=== PATIENT | female | born 1965 | race Caucasian/White ===

== ENCOUNTER 2018-10-10 13:15 | Observation (INO) | payer BC ==
[~2018-10-10] VITALS: Ht 170.2 cm; Wt 132.7 kg
[~2018-10-10 13:15] MED LIST: CEPH500 PO; Flonase 0.05% N16 GM; IBUP800 PO; OMEPRAZOLE MAGN20 MG PO; ZOLP5 PO
[2018-10-10 14:11] LABS: BASOPHILS PERCENT AUTO 1 % (0-2); EOSINOPHILS ABSOLUTE AUTO 0.25 K/mm3 (0.00-0.68); EOSINOPHILS PERCENT AUTO 2 % (0-6); Hematocrit 42.3 % (33.0-51.0); Hemoglobin 13.8 g/dL (11.5-16.0); IMMATURE GRAN ABSOLUTE AUTO 0.38 K/mm3 (0.00-0.10); IMMATURE GRAN PERCENT AUTO 4 % (0-1); LYMPHOCYTES ABSOLUTE AUTO 1.85 K/mm3 (0.84-5.20); LYMPHOCYTES PERCENT AUTO 17 % (21-46); MONOCYTES ABSOLUTE AUTO 1.56 K/mm3 (0.16-1.47); MONOCYTES PERCENT AUTO 15 % (4-13); Mean Corpuscular HGB 28.7 pg (26.0-34.0); Mean Corpuscular HGB Conc 32.6 g/dL (31.5-36.5); Mean Corpuscular Volume 88 fL (80-100); Mean Platelet Volume 9.1 fL (9.1-12.4); NEUTROPHILS ABSOLUTE AUTO 6.61 K/mm3 (1.96-9.15); NEUTROPHILS PERCENT AUTO 62 % (41-73); Platelet Count 200 K/mm3 (150-400); RDW Coefficient Variation 13.2 % (11.7-14.2); RDW Standard Deviation 42.6 fL (35.1-46.3); Red Blood Cell Count 4.81 M/mm3 (3.80-5.20); White Blood Cell Count 10.75 K/mm3 (4.00-11.30)
[2018-10-10 14:36] LABS: Alanine Aminotransfer (ALT/SGP 54 U/L (12-78); Albumin/Globulin Ratio 0.8 (0.8-1.8); Alk Phos 85 U/L (50-136); Anion Gap 9 mmol/L (6-16); Aspartate Aminotrans (AST/SGOT 34 U/L (12-37); Bilirubin, Total 0.4 mg/dL (0.1-1.0); Blood Urea Nitrogen 12 mg/dL (8-24); Bun/Creatinine Ratio 15.5 (12.0-20.0); CO2, Blood 24 mmol/L (21-32); Calcium, Blood 8.9 mg/dL (8.5-10.1); Chloride, Blood 109 mmol/L (98-108); Creatinine, Blood 0.77 mg/dL (0.40-1.00); Globulin, Blood 3.8 g/dL (2.2-4.0); Glomerular Filtration Rate >60 (60-); Glucose, Blood 91 mg/dL (70-99); Potassium, Blood 3.6 mmol/L (3.5-5.5); Sodium, Blood 142 mmol/L (136-145); Total Protein, Blood 6.8 g/dL (6.4-8.2)
[2018-10-10] MEDS ORDERED: ACET500 PO (18:54)
[2018-10-10] MEDS ORDERED: IBUP400 PO (18:55)
[2018-10-11 05:14] LABS: BASOPHILS ABSOLUTE AUTO 0.06 K/mm3 (0.00-0.23); BASOPHILS PERCENT AUTO 1 % (0-2); EOSINOPHILS ABSOLUTE AUTO 0.31 K/mm3 (0.00-0.68); EOSINOPHILS PERCENT AUTO 4 % (0-6); Hematocrit 36.5 % (33.0-51.0); Hemoglobin 11.7 g/dL (11.5-16.0); IMMATURE GRAN ABSOLUTE AUTO 0.37 K/mm3 (0.00-0.10); IMMATURE GRAN PERCENT AUTO 5 % (0-1); LYMPHOCYTES ABSOLUTE AUTO 2.05 K/mm3 (0.84-5.20); LYMPHOCYTES PERCENT AUTO 25 % (21-46); MONOCYTES ABSOLUTE AUTO 1.14 K/mm3 (0.16-1.47); MONOCYTES PERCENT AUTO 14 % (4-13); Mean Corpuscular HGB 28.5 pg (26.0-34.0); Mean Corpuscular HGB Conc 32.1 g/dL (31.5-36.5); Mean Corpuscular Volume 89 fL (80-100); Mean Platelet Volume 9.1 fL (9.1-12.4); NEUTROPHILS ABSOLUTE AUTO 4.21 K/mm3 (1.96-9.15); NEUTROPHILS PERCENT AUTO 52 % (41-73); Platelet Count 179 K/mm3 (150-400); RDW Coefficient Variation 13.3 % (11.7-14.2); RDW Standard Deviation 43.5 fL (35.1-46.3); White Blood Cell Count 8.14 K/mm3 (4.00-11.30)
--- NOTE | 2018-10-11 06:39 | NUR ---
SHIFT SUMMARY PT ARRIVE TO ROOM APPROX 1999. INDEPENDENT IN ROOM. NO C/O PAIN. ABD DRESSING TO WOUND SITE. CALL LIGHT IN REACH.
--- NOTE | 2018-10-11 17:43 | NUR ---
SHIFT SUMMARY NO CHANGES IN ASSESSMENT AT THIS TIME. PT BANDAGE CHANGED. DRAINAGE YELLOW/RED IN COLOR. PT MEDICATED FOR PAIN ONCE THIS SHIFT. PT TOLERATED AMBULATING [facility] WITH HER . VSS. WILL CONTINUE TO MONITOR UNTIL TURNOVER IS COMPLETE.
--- NOTE | 2018-10-12 07:47 | NUR ---
Rn summary: Patient is alert and oriented. Drsg change to mons pubis, drainage is brownish,serrous, moderate amount. Pt has declined any pain meds. She has been up in her chair and up independantly in room. Pt states she slept well on and off during the night. She is very hopeful to be discharged today. Call light in reach. Report given to day shift RN.
[2018-10-12] MEDS ORDERED: SACC250C PO (11:57)
[2018-10-12] MEDS ORDERED: NICO21TP TOP (11:57)
[2018-10-12] MEDS ORDERED: CLIN150 PO (11:58)
--- NOTE | 2018-10-12 14:21 | NUR ---
DISCHARGE SUMMARY PT DISCHARGED HOME WITH SPOUSE PRESENT. PT LEFT ROOM WITH SPOUSE AND SHIFT SUPERVISOR FILM PROCESSING ESCORT PRIOR TO THIS NOTE. PT EDUCATED ON WOULD CARE AND INSTRUCTED TO TAKE MEDICATIONS THROUGH COMPLETION. DISCHARGE INSTRUCTIONS COMPLETED, ALL QUESTIONS ANSWERED. PT AGREED TO FOLLOW UP WITH PCP AND TO MEDICAL UNDERWRITER MEDICATIONS FROM PHARMACY. IV DC'D AND BELONGINGS RETURNED.
== END 2018-10-12 13:18 | disposition home or self-care (01) ==
LOC: ER 13:15 → MEDS 13:52 → ENPENDDIS 10-12 09:29 → MEDS 10-12 13:18
PROVIDERS: Nurse Practitioner Acute Care; Physician Assistant; ADMIT Internal Medicine
DX: M79.3 Panniculitis, unspecified (principal); K21.9 Gastro-esophageal reflux disease without esophagitis; E66.01 Morbid (severe) obesity due to excess calories; F17.210 Nicotine dependence, cigarettes, uncomplicated; Z79.899 Other long term (current) drug therapy; Z88.6 Allergy status to analgesic agent; Z68.41 Body mass index [BMI] 40.0-44.9, adult
CPT/HCPCS: 36415; 72193; 80053; 83605; 85025; 87205; 96361; 96365-59; 96366; 96367; 96372; 96375-59; 96376; 99284-25; G0378; J0690; J1650; J7030; Q9967

== ENCOUNTER 2018-12-18 12:00 | Day surgery (SDC) | payer BC ==
[~2018-12-18 12:00] MED LIST changes: +ACET500 PO; +CLIN150 PO; +IBUP400 PO; +NICO21TP TOP; +SACC250C PO
--- NOTE | 2018-12-18 12:46 | NUR ---
DR AMEZCUA IN AGREEMENT TO PROCEED WITH NURSE SEDATION/PROPOFOL. PT AWARE AND AGREEABLE WIT PLAN. History, Chart, Medications and Allergies reviewed before start of procedure. Patient states colon prep results clear. Patient States Post-Procedure ride home has been arranged.
--- NOTE | 2018-12-18 13:36 | NUR ---
12/18/18 1336 [place] PATIENT DETERMINED TO BE ASA APPROPRIATE FOR PROPOFOL SEDATION PRIOR TO START OF PROCEDURE BY 3-LEAD EKG REVIEWED WITH PHYSICIAN PRIOR TO START OF PROCEDURE.Patient to ENDO 2History, Chart, Medications and Allergies reviewed before start of procedure.MONITOR INTACT WITH CONTINUOUS PULSE OXIMETRY AND INTERMITTENT BP.O2 VIA N/C INTACT THROUGHOUT SEDATION/PROCEDURE.
== END 2018-12-18 22:54 | disposition home or self-care (01) ==
LOC: ORSCMMR 12:00 → ORD 13:30 → ORSCMMR 13:30
PROVIDERS: Internal Medicine Gastroenterology
PROC: 0DBL8ZX Excision of Transverse Colon, Via Natural or Artificial Opening Endoscopic, Diagnostic (ICD-10-PCS; principal; 2018-12-18 13:30)
PROC: 0DBH8ZX Excision of Cecum, Via Natural or Artificial Opening Endoscopic, Diagnostic (ICD-10-PCS; principal; 2018-12-18 13:30)
DX: Z12.11 Encounter for screening for malignant neoplasm of colon (principal); Z86.010 Personal history of colon polyps; D12.0 Benign neoplasm of cecum; D12.3 Benign neoplasm of transverse colon; K57.30 Diverticulosis of large intestine without perforation or abscess without bleeding; K64.8 Other hemorrhoids; K21.9 Gastro-esophageal reflux disease without esophagitis; G47.33 Obstructive sleep apnea (adult) (pediatric); Z87.891 Personal history of nicotine dependence; E66.01 Morbid (severe) obesity due to excess calories; Z68.41 Body mass index [BMI] 40.0-44.9, adult; Z79.899 Other long term (current) drug therapy
CPT/HCPCS: 88305; J2704; J7120

== ENCOUNTER → 2019-10-08 | Outpatient (CLI) | payer BC ==
[2019-10-10 14:08] LABS: HPV 16 Negative (Negative); HPV 18 Negative (Negative); HPV OTHER HR TYPES Negative (Negative)
== END | disposition home or self-care (01) ==
LOC: LAB SHORT 11:44 → LAB 11:44
PROVIDERS: Obstetrics & Gynecology
DX: Z01.419 Encounter for gynecological examination (general) (routine) without abnormal findings (principal)
CPT/HCPCS: 87624; G0123

== ENCOUNTER 2020-08-17 08:09 | Day surgery (SDC) | payer BC ==
[~2020-08-17] VITALS: Ht 170.2 cm; Wt 136.4 kg
[~2020-08-17 08:09] MED LIST changes: +Percocet 5-3251 EACH PO; +XARELTO20 MG PO
[2020-08-17] MEDS ORDERED: Aspir 8181 MG (08:51)
--- NOTE | 2020-08-17 09:07 | NUR ---
08/17/20 0907 Marbella Soto BLOOD DRAWN FOR PRP AND ANTICOAGULANT IS ADDED, DELIVERED TO THE OR AND SPUN.
--- NOTE | 2020-08-17 11:54 | NUR ---
08/17/20 1154 Radha Mccall 1MG EPI INJECTED INTO 3 3000MLBAGS OF LR FOR IRRIGATION PER PHSYICIN ORDERS
== END 2020-08-17 12:35 | disposition home or self-care (01) ==
LOC: ORSCSDS 08:09
PROVIDERS: Orthopaedic Surgery
PROC: 0LQ24ZZ Repair Left Shoulder Tendon, Percutaneous Endoscopic Approach (ICD-10-PCS; principal; 2020-08-17 09:30)
PROC: 0RNK4ZZ Release Left Shoulder Joint, Percutaneous Endoscopic Approach (ICD-10-PCS; principal; 2020-08-17 09:30)
DX: M75.112 Incomplete rotator cuff tear or rupture of left shoulder, not specified as traumatic (principal); M75.22 Bicipital tendinitis, left shoulder; M75.42 Impingement syndrome of left shoulder; Z87.891 Personal history of nicotine dependence; Z79.899 Other long term (current) drug therapy; Z79.82 Long term (current) use of aspirin
CPT/HCPCS: A9270; C1713; J0171; J0690; J1100; J2250; J2405; J2704; J3010; J7120

== ENCOUNTER → 2021-05-07 | Outpatient (CLI) | payer BC ==
[~2021-05-07] MED LIST changes: +Aspir 8181 MG
== END | disposition home or self-care (01) ==
LOC: LAB 12:41 → LAB SHORT 12:41
DX: N39.0 Urinary tract infection, site not specified (principal)
CPT/HCPCS: 87077; 87086; 87186

== ENCOUNTER 2021-10-11 09:51 | Day surgery (SDC) | payer OTHER ==
[~2021-10-11] VITALS: Ht 170.2 cm; Wt 124.4 kg
--- NOTE | 2021-10-11 10:41 | NUR ---
10/11/21 1041 Marbella Soto TIMEOUT AND SITE CHECK DONE WITH DR CARPENTER FOR ISB.
--- NOTE | 2021-10-11 12:28 | NUR ---
10/11/21 1228 Isha Nicole PT EMESIS UPON ENTERING STEP DOWN X2
== END 2021-10-11 13:20 | disposition home or self-care (01) ==
LOC: ORSCSDS 09:51
PROVIDERS: Orthopaedic Surgery
PROC: 0LQ24ZZ Repair Left Shoulder Tendon, Percutaneous Endoscopic Approach (ICD-10-PCS; principal; 2021-10-11 11:15)
PROC: 0LU24KZ Supplement Left Shoulder Tendon with Nonautologous Tissue Substitute, Percutaneous Endoscopic Approach (ICD-10-PCS; principal; 2021-10-11 11:15)
DX: M75.112 Incomplete rotator cuff tear or rupture of left shoulder, not specified as traumatic (principal); M75.42 Impingement syndrome of left shoulder; M24.012 Loose body in left shoulder; G47.33 Obstructive sleep apnea (adult) (pediatric); Z87.891 Personal history of nicotine dependence; K21.9 Gastro-esophageal reflux disease without esophagitis; E66.01 Morbid (severe) obesity due to excess calories; Z68.41 Body mass index [BMI] 40.0-44.9, adult; Z79.899 Other long term (current) drug therapy; Z79.82 Long term (current) use of aspirin
CPT/HCPCS: A9270; C1713; J0171; J0690; J1100; J2250; J2370; J2405; J2704; J3010; J7120

== ENCOUNTER 2022-05-05 10:46 | Day surgery (SDC) | payer OTHER ==
[~2022-05-05] VITALS: Ht 170.2 cm; Wt 121.4 kg
== END 2022-05-05 13:07 | disposition home or self-care (01) ==
LOC: ORSCSDS 10:46
PROVIDERS: Internal Medicine Gastroenterology
PROC: 0DBL8ZX Excision of Transverse Colon, Via Natural or Artificial Opening Endoscopic, Diagnostic (ICD-10-PCS; principal; 2022-05-05 12:00)
PROC: 0DBK8ZX Excision of Ascending Colon, Via Natural or Artificial Opening Endoscopic, Diagnostic (ICD-10-PCS; principal; 2022-05-05 12:00)
PROC: 0DBP8ZX Excision of Rectum, Via Natural or Artificial Opening Endoscopic, Diagnostic (ICD-10-PCS; principal; 2022-05-05 12:00)
DX: Z12.11 Encounter for screening for malignant neoplasm of colon (principal); Z86.010 Personal history of colon polyps; D12.2 Benign neoplasm of ascending colon; D12.3 Benign neoplasm of transverse colon; K62.1 Rectal polyp; G47.33 Obstructive sleep apnea (adult) (pediatric); F17.210 Nicotine dependence, cigarettes, uncomplicated; E66.01 Morbid (severe) obesity due to excess calories; Z68.41 Body mass index [BMI] 40.0-44.9, adult; K21.9 Gastro-esophageal reflux disease without esophagitis; Z79.899 Other long term (current) drug therapy; Z79.82 Long term (current) use of aspirin
CPT/HCPCS: 88305; J2704; J7120

== ENCOUNTER 2022-11-27 14:58 | Emergency (ER) | payer OTHER ==
[~2022-11-27] VITALS: Ht 170.2 cm; Wt 120.2 kg
[2022-11-27 15:49] VITALS: BP 190/90
[2022-11-27 15:51] LABS: Source, Urine Clean Catch
[2022-11-27 15:54] LABS: Appearance, Urine Cloudy (Clear); Bilirubin, Urine Neg (Neg); Blood, Urine 5+ (Neg); Color, Urine Yellow (P-Yellow); Glucose Qualitative, Urine Neg (Neg); Ketones, Urine Neg (Neg); Leukocyte Esterase, Urine 3+ (Neg); Nitrite, Urine Pos (Neg); Protein, Urine 3+ (Neg); Urobilinogen, Urine NORM (Normal)
[2022-11-27 16:01] LABS: Red Blood Cells, Urine TNTC /hpf (0-2)
[2022-11-27 16:02] LABS: Bacteria Mod /hpf; Squamous Epithelial Cells Few /hpf (Few); White Blood Cells, Urine 25-50 /hpf (0-5)
[2022-11-27] MEDS ORDERED: Macrobid 100 M100 MG PO (16:38)
[2022-11-27] MEDS ORDERED: Pyridium100 MG PO (16:44)
== END 2022-11-27 16:45 | disposition home or self-care (01) ==
LOC: ER 14:58
PROVIDERS: Student in an Organized Health Care Education/Training Program
DX: N39.0 Urinary tract infection, site not specified (principal); K21.9 Gastro-esophageal reflux disease without esophagitis; Z86.718 Personal history of other venous thrombosis and embolism; Z88.6 Allergy status to analgesic agent; Z79.82 Long term (current) use of aspirin; Z79.899 Other long term (current) drug therapy
CPT/HCPCS: 81001; 81025; A9270

== ENCOUNTER → 2024-07-29 | Outpatient (CLI) | payer OTHER ==
[~2024-07-29] MED LIST changes: +Macrobid 100 M100 MG PO; +Pyridium100 MG PO
[2024-08-04 07:43] LABS: HPV HIGH RISK BY TMA Not Detected; HPV SOURCE Cervical/Vag
== END ==
LOC: LAB 15:26 → LAB SHORT 15:26
PROVIDERS: Family Medicine
DX: Z01.419 Encounter for gynecological examination (general) (routine) without abnormal findings (principal)
CPT/HCPCS: 87624; G0123